=== PATIENT | male | born 1970 ===

== ENCOUNTER 2020-09-05 02:54 | Emergency (ER) | payer BC, MEDICAID ==
[~2020-09-05] VITALS: Ht 182.9 cm; Wt 101.7 kg
[2020-09-05 03:28] VITALS: BP 103/68
--- NOTE | 2020-09-05 03:49 | NUR ---
Patient given discharge instructions and they have confirmed that they understand the instructions. Patient ambulatory with steady gait. NAD, all questions answered appropriately, denies additional needs at this time. No personal belongings left in room after discharge.
== END 2020-09-05 03:51 | disposition home or self-care (01) ==
LOC: ED 03:49
DX: R42 Dizziness and giddiness (principal); T42.6X5A Adverse effect of other antiepileptic and sedative-hypnotic drugs, initial encounter; Y92.89 Other specified places as the place of occurrence of the external cause; I10 Essential (primary) hypertension
CPT/HCPCS: 99281